=== PATIENT | male | born 1945 | race African-American/Black ===

== ENCOUNTER 2018-09-26 09:22 | Inpatient (IN) | payer MEDICARE ==
[2018-09-26] MEDS ORDERED: ISOVUE-370 76%-LOCM 1 ML ONE (10:08)
[2018-09-26 10:21] LABS: #Lymphocytes 1.4 thou/uL (1.20-3.40); #Monocytes 0.9 thou/uL (0.11-0.59); #Neutrophils 9.4 thou/uL (1.40-6.50); %Basophils 0.2 % (0.0-1.0); %Eosinophils 0.2 % (0.0-10.0); %Lymphocytes 11.6 % (21.0-51.0); %Monocytes 7.4 % (0.0-10.0); %Neutrophils 80.7 % (42.0-75.0); Hemoglobin 14.1 g/dL (14.0-18.0); Mean Corpuscular HGB CONC 32.5 g/dL (32.0-36.0); Mean Corpuscular Volume 89.3 fL (78.0-98.0); Mean Platelet Volume 8.4 fL (7.4-10.4); Platelet Count 251 thou/uL (130-400); RBC Distribution Width 12.8 % (11.5-14.5); Red Blood Cell (RBC) Count 4.86 mill/uL (4.70-6.10); White Blood Cell (WBC) Count 11.6 thou/uL (4.8-10.8)
[2018-09-26 10:40] LABS: ALT (SGPT) 60 U/L (8-55); AST (SGOT) 36 U/L (5-34); Albumin 4.2 g/dL (3.4-4.8); Alkaline Phosphatase 134 U/L (40-150); Anion Gap 14 mmol/L (10-20); BUN (Urea Nitrogen) 12 mg/dL (8.4-25.7); Bilirubin, Total 1.8 mg/dL (0.2-1.2); Calc. Creatinine Clearance 0 mL/min (70-130); Carbon Dioxide 27 mmol/L (23-31); Chloride 100 mmol/L (98-107); Estimated GFR-MDRD 83; Globulin 3.6 g/dL (2.4-3.5); Glucose 103 mg/dL (83-110); Potassium 4.1 mmol/L (3.5-5.1); Protein, Total 7.8 g/dL (5.8-8.1); Sodium 137 mmol/L (136-145)
[2018-09-26] MEDS ORDERED: Piperacillin/Tazobactam 3.375 GM VIAL ONE ×2 (11:07→17:38)
[2018-09-26] MEDS ORDERED: Adacel (T-DAP) 0.5 ML SYRINGE ONE (11:08)
--- NOTE | 2018-09-26 11:20 | PDOC.FPRHP ---
- History of Present Illness Chief Complaint: facial pain and swelling History of Present Illness: Pt is a 73yo M with PMH of traumatic fall in 2005 where he suffered orbital fx s /p surgical repair, and recurrent facial cellulitis (3x over last 6 months) presents with 5 day hx of facial swelling, erythema, and pain. Has been seen by dentist for this in the past with good treatment with resolution with Abx, however when he saw him on Saturday and was given PCN, it has not improved, in fact has worsened. He was recommended to come to the ED for evaluation. Pt reports subjective fevers at home, but otherwise ROS is negative as noted below. ED Course: Pt was given Vancomycin 1g, Zosyn 3.375g, and 1L NS. He was also given Tdap vaccine. Imaging has been ordered but not yet performed. - Allergies/Adverse Reactions Allergies Allergy/AdvReac Type Severity Reaction Status Date / Time No Known Allergies Allergy Verified 09/26/18 23:31 - Home Medications Medication Instructions Recorded Confirmed Type Acetaminophen With Codeine 1 tablet PO Q6HR PRN 09/26/18 09/26/18 History [Tylenol with Codeine #3] Amoxicillin/Potassium Clav 500 mg PO Q12HR #20 tab 09/28/18 Rx [Augmentin] Chlorhexidine Gluconate 15 ml SSP BID #300 ml 09/28/18 Rx - History PMHx:none PSHx: orbital fx and trimalar fx surgical repair (2005) FHx: none Social: Reports 15y hx of dipping tobacco, quit drinking 6years ago, no hx of illegal drug use. Lives with dtr. Independent of ADLs. Last tetanus >10 years ago. No PCP - Review of Systems General: reports: fever/chills, night sweats. denies: weight/appetite/sleep changes Eyes: reports: vision changes (no blurred vision, just d/t eye being swollen shut). denies: eye pain ENT: denies: nasal congestion, rhinorrhea Respiratory: denies: cough, congestion, shortness of breath, exercise intolerance Cardiovascular: denies: chest pain, palpitation, edema Gastrointestinal: denies: nausea, vomiting, diarrhea, constipation, abdominal pain, GI bleeding Genitourinary: reports: other (wakes 3-4x/night per). denies: incontinence, dysuria Skin: denies: rashes, lesions Musculoskeletal: denies: pain, tenderness, stiffness, swelling Neurological: denies: numbness, syncope, seizure, weakness Psychological: denies: anxiety, depression - Vital signs BP: 159/90 HR: 92 RR: 18 Tmax: 98.0 Pox: 99% on RA Wt: 86kg - Physical Exam Constitutional: NAD, awake, alert and oriented, well developed HEENT: PERRLA, EOMI, grossly normal vision, TM's clear and intact, grossly normal hearing, normal nasal mucosa, MMM -HEENT: Poor dentition, no tenderness on plapation of palate, does have tenderness and some fluctuance of L buccal mucosa. No open wounds noted. Grossly deformation of face d/t swelling of L face that extends from upper orbital region down to the lower jaw with induration and mild fluctuance of L cheek. Eye swollen shut with erythema of the swollen area. Neck: supple, trachea midline, no LAD Heart: RRR, normal S1/S2, no murmurs/rubs/gallops, pulses present, no edema Lungs: CTAB, no respiratory distress, good air movement, no rales/rhonchi, no wheezing, no retractions Abdomen: soft, non-tender, bowel sounds present, no masses/distention, no hernias Musculoskeletal: normal structure, normal tone, ROM grossly normal Neurological: no focal deficit, normal sensation Skin: no rash/lesions, capillary refill <2 seconds Heme/Lymphatic: no unusual bruising or bleeding, no purpura, no petechia Psychiatric: normal mood and affect, good judgment and insight, intact recent and remote memory FMR H&P: Results - Labs Result Diagrams: 09/28/18 10:05 09/28/18 10:05 Lab results: WBC 11.6 thou/uL (4.8-10.8) H 09/26/18 10:06 Hgb 14.1 g/dL (14.0-18.0) 09/26/18 10:06 Hct 43.4 % (42.0-52.0) 09/26/18 10:06 MCV 89.3 fL (78.0-98.0) 09/26/18 10:06 Plt Count 251 thou/uL (130-400) 09/26/18 10:06 Neutrophils % 80.7 % (42.0-75.0) H 09/26/18 10:06 Sodium 137 mmol/L (136-145) 09/26/18 10:06 Potassium 4.1 mmol/L (3.5-5.1) 09/26/18 10:06 Chloride 100 mmol/L (98-107) 09/26/18 10:06 Carbon Dioxide 27 mmol/L (23-31) 09/26/18 10:06 BUN 12 mg/dL (8.4-25.7) 09/26/18 10:06 Creatinine 1.06 mg/dL (0.7-1.3) 09/26/18 10:06 Glucose 103 mg/dL (83-110) 09/26/18 10:06 Calcium 10.0 mg/dL (7.8-10.44) 09/26/18 10:06 Total Bilirubin 1.8 mg/dL (0.2-1.2) H 09/26/18 10:06 AST 36 U/L (5-34) H 09/26/18 10:06 ALT 60 U/L (8-55) H 09/26/18 10:06 Alkaline Phosphatase 134 U/L (40-150) 09/26/18 10:06 Serum Total Protein 7.8 g/dL (5.8-8.1) 09/26/18 10:06 Albumin 4.2 g/dL (3.4-4.8) 09/26/18 10:06 FMR H&P: A/P - Problem List (1) Facial cellulitis Status: Acute Code(s): L03.211 - CELLULITIS OF FACE (2) Facial abscess Status: Acute Code(s): L02.01 - CUTANEOUS ABSCESS OF FACE (3) Hx of reduction of orbital fracture Status: Acute Code(s): Z87.81 - PERSONAL HISTORY OF (HEALED) TRAUMATIC FRACTURE; Z98.890 - OTHER SPECIFIED POSTPROCEDURAL STATES (4) Elevated liver enzymes Status: Acute Code(s): R74.8 - ABNORMAL LEVELS OF OTHER SERUM ENZYMES (5) Tobacco use Status: Acute Code(s): Z72.0 - TOBACCO USE - Plan Recurrent Facial Cellulitis with Abscess (failed outpt tx) Pt with 3 episodes of cellulitis over last 6 months treated with oral abx, did not respond on this occasion. Has been on PCN since Saturday and worsening swelling, pain and erythema. - WBC 11, VSS. No signs of sepsis at this time. - s/p Vanc and Zosyn in ED, will continue - blood cx pending - with hx of orbital fx and hardware (Plates x4) will consult OMFS, Dr. Hyde for surgical I&D - CTface pending for further evaluation - ESR and CRP to evaluate for osteo - NPO, s/p 1L NS, will place on maintenance at NS @ 120ml/hr Hx of oribital fx with hardware in place As above, this complicates picture of cellulitis, concern for possible hardware infection - OMFS consult Elevated Liver Enzymes No hx of abd pain or alcoholism. - Hep panel and RUQ US pending - trend CMP Tobacco Use Dips [place] x15 years - encourage cessation DVT PPx: SCD Code Status: Full Diet: NPO Fluids: NS @120 Dispo: Admit to medical. Will likely stay >2 midnights. FMR H&P: Upper Level - Plan Date/Time: 09/26/18 1117 I, [], have evaluated this patient and agree with findings/plan as outlined by chemist internship resident. Pertinent changes/additions are listed here. Addendum - Attending - Attending Attestation Date/Time: 10/02/18 1614 I personally evaluated the patient and discussed the management with Dr. Hernandez on 09/26/18. I agree with the History, Examination, Assessment and Plan documented above with any addition or exceptions noted below. 73 y.o. BM with remote h/o Left traumatic malar and orbital blowout fx now with recurrent facial cellulitis/gingivitis previously responsive to oral abx from dentist, now not and with abscess formation with maxillary involvement. OMFS to surgically drain and eval for repair. Incidentally elevated LFT's with abnormal GB findings on US to be evaluated when stable from acute issue.
[2018-09-26] MEDS ORDERED: Dexamethasone 20 MG/5 ML VIAL ONE (11:37)
[2018-09-26] MEDS ORDERED: Glycopyrrolate 0.2 MG/ML 5 ML SYRINGE ONE (11:37)
[2018-09-26] MEDS ORDERED: PROPOFOL 200 MG/20 ML VIAL ONE (11:37)
[2018-09-26] MEDS ORDERED: PHENYLEPHRINE-NS 100 MCG/ML 10 ML SYRINGE ONE (11:37)
[2018-09-26] MEDS ORDERED: Lidocaine 1% PF 5 ML VIAL ONE (11:37)
[2018-09-26] MEDS ORDERED: Ondansetron PF 4 MG/2 ML Vial ONE (11:37)
[2018-09-26] MEDS ORDERED: Rocuronium Bromide 10 MG/ML (10ML VIAL) ONE (11:37)
[2018-09-26] MEDS ORDERED: Lidocaine 1% w/Epinephrine 1:100K 20 ML VIAL ONE ×2 (11:43→16:34)
[2018-09-26] MEDS ORDERED: Morphine 4 MG/ML VIAL ONE (12:01)
--- NOTE | 2018-09-26 13:04 | CT ---
CT OF THE FACE WITH CONTRAST: DATE: 09/26/2018. COMPARISON: None. HISTORY: Dental pain, left-sided facial swelling. TECHNIQUE: Axial CT imaging at 2.5 mm intervals through the face with Iv contrast. Coronal and sagittal reforma tted imaging obtained. FINDINGS: There is mild mucosal thickening involving the medial aspect of the left frontal sinus. There is sca ttered partial opacification of the left ethmoid air cells. The right maxillary sinus, sphenoid sinu ses, and mastoid air cells are unremarkable. There is complete opacification of the left maxillary s inus. The internal contents of the opacified maxillary sinus on the left are heterogeneous, hypodens e posteriorly with hyperdensity anteriorly, possibly on the basis of enhancing soft tissue. This ext ends to the level of a focal area of osseous dehiscence which involves the anterior wall of the left maxillary sinus measuring 1.2 cm in transverse dimension. There is also a large area of dehiscence o f the orbital floor on the left lateral to the foramen for the infraorbital nerve measuring 1.9 cm in transverse dimension. Abnormal soft tissue density extends to the inferior aspect of the orbit in t his region. There is stranding and increased density within the retroantral fat on the left. There is mild stranding of the fat within the train system operator space on the left as well. There is extensive skin thickening and subcutaneous fat stranding in the submandibular region, left g reater than right. There is extensive abnormal soft tissue swelling with skin thickening and subcuta neous fat stranding superior and lateral to the left orbit, anterior to and lateral to the left orbit and inferior to the left orbit extending into the perimaxillary and perimandibular region on the lef t. There is a complex multilobulated soft tissue mass composed of islands of hypodensity suggesting fluid and/or necrotic components. The epicenter of this process is anterior to the maxillary sinus a nd anterior/lateral to the ventral aspect of the zygomatic arch on the left. This extends to involve the subcutaneous fat and measures at least 5.7 cm in greatest transverse dimension, 4.[address] AP dimension, and approximately 6 cm in greatest craniocaudal dimension. There are areas of osseous dehiscence involving the inferior aspect of the maxillary sinus on the lef t anteriorly and laterally. There is postoperative hardware associated with the anterior wall and in ferior aspect of the left maxillary sinus. There are a few scattered mildly enlarged level I lymph nodes bilaterally. The imaged intracranial contents appear grossly unremarkable. There is atherosclerotic calcification of the distal vertebral arteries and cavernous carotid arterie s. IMPRESSION: There is extensive left-sided facial soft tissue swelling with skin thickening and subcutaneous fat s tranding from the axial level superior to the left orbit to the level of the mandible suggesting exte nsive cellulitis. There is a complex multiloculated lesion within the soft tissues adjacent to the m axillary sinus on the left which suggests a complex multiloculated soft tissue abscess. There is abn ormal soft tissue density in the maxillary sinus on th left with areas of dehiscence involving the or bital floor, anterior maxillary sinus wall, and posterior maxillary sinus wall. All findings may be on the basis of an infectious process within the maxillary sinus extending into the soft tissues. Ho wever, the marked complexity of this process, including the suggestion of soft tissue density in the maxillary sinus itself raises the question of possible underlying malignancy. There is involvement o f the train system operator space and the retroantral fat on the left. Results were called to Dr. Sands at 11:45 a.m. 09/26/2018. CODE CR POS: SJ
[2018-09-26] MEDS ORDERED: Acetaminophen 325 MG TAB PO PRN (14:05)
[2018-09-26] MEDS ORDERED: Ketorolac Tromethamine 10 MG TAB PO PRN (14:05)
[2018-09-26] MEDS ORDERED: Ondansetron ODT 4 MG TAB PO PRN (14:05)
--- NOTE | 2018-09-26 14:13 | ULT ---
RIGHT UPPER QUADRANT ULTRASOUND: INDICATION: Elevated liver enzymes. COMPARISON: No prior imaging comparison. FINDINGS: No focal hepatic mass is evident. There is increased echogenicity of the gallbladder lumen with asso ciated moderate gallbladder distention. Doppler evaluation does not reveal flow within the intralumi nal echogenicity of the gallbladder which, therefore, relate to tumefactive sludge and/or a mass-like configuration of gallstones. There is mild gallbladder wall thickening at approximately 4 mm. The visualized common duct is 4 mm, within normal limits. No ascites is seen. IMPRESSION: Moderate distention of the gallbladder with increased intraluminal echogenicity as discussed above wh ich could relate to tumefactive sludge and/or layering cholelithiasis. There is mild gallbladder wal l thickening. The possibility of an underlying gallbladder mass is not excluded on the basis of this exam as the finding is immobile during real-time assessment. Therefore, recommend surgical consulta tion for further assessment. POS: TPC
[2018-09-26 15:01] LABS: HBCM Index 0.06 S/CO (0-0.79); HBSAB Concentration 1.68 mIU/mL; HBSAg Index 0.24 S/CO (0-0.99); Hep B Core Total Ab Non-Reactive (NonReactive); Hep B Core Total Index 0.09 S/CO (0-0.79); Hep B Surf AB Non-Reactive (NonReactive); Hep B Surf Ag Non-Reactive S/CO (NonReactive); Hep C IgG Ab Non-Reactive (NonReactive); Hep C Index 0.06 S/CO (0-0.79); Hepatitis B Core IgM Abs Non-Reactive (NonReactive)
[2018-09-26] MEDS ORDERED: Hydrocortisone 1% Cream 30 GM TUBE ONE (16:34)
[2018-09-26] MEDS ORDERED: Chlorhexidine Gluconate 15 ML UDCUP SSP ONE (16:34)
[2018-09-26] MEDS ORDERED: Fentanyl 100 MCG/2 ML VIAL ONE (17:02)
[2018-09-26] MEDS ORDERED: Ophthalmic Irrigation Solution 15 ML ONE (18:30)
[2018-09-26] MEDS ORDERED: Promethazine HCl 25 MG/ML VIAL IM/IV PRN (19:39)
[2018-09-26] MEDS ORDERED: Ondansetron HCl/PF 4 MG/2 ML Vial IVP PRN (19:39)
[2018-09-26] MEDS: Piperacillin/Tazobactam 3.375 GM in Sodium Chloride 0.9% 100 ML IVPB SCH (20:08)
[2018-09-26] MEDS: Sodium Chloride 0.9% 1,000 ML IV SCH ×2 (20:08→22:39)
[2018-09-26 20:13] VITALS: BMI 25.2
[2018-09-26] MEDS: Chlorhexidine Gluconate 15 ML UDCUP SSP SCH (22:39)
[2018-09-26] MEDS: Vancomycin HCl 1 GM in Premix Bag 1 BAG IVPB SCH (22:40)
[2018-09-27] MEDS: Piperacillin/Tazobactam 3.375 GM in Sodium Chloride 0.9% 100 ML IVPB SCH ×5 (01:12→23:15)
--- NOTE | 2018-09-27 01:19 | CON ---
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 Oral surgery was consulted for surgical intervention. PAST MEDICAL HISTORY: None. PAST SURGICAL HISTORY: Left [facility]MC left orbital fracture repair in 2005. HOME MEDICATIONS: 1. Penicillin. 2. Tylenol 3. ALLERGIES: NONE. SOCIAL HISTORY: Positive for chewing tobacco, negative for alcohol or illicit drug use. REVIEW OF SYMPTOMS: The patient reports left facial pain, soreness when opening mouth. No vision changes or blurry vision around the left side. PHYSICAL EXAMINATION: VITAL SIGNS: Stable, afebrile. LABORATORY RESULTS: White blood cell count 11.6, hemoglobin 14.1, hematocrit 43.4, platelet count 89.3. PHYSICAL EXAMINATION: GENERAL: Awake, alert and oriented x3. No acute distress. HEENT: There is generalized left facial swelling over the left malar eminence extending periorbitally with associated lid edema. With assistance the patient is able to open this eye with extraocular movements intact. Visual acuity is grossly intact as well. There is superficial fluctuance along the left malar eminence. Tympanic membranes clear and intact. Intraoral exam reveals left buccal and maxillary vestibular edema. There is exposure of the inferior aspect of the left maxillary buttress plate through the alveolar gingiva on the patient's left posterior quadrant. No purulence is expressed on palpation. Partially edentulous maxilla and mandible. Tongue full range of motion with floor of mouth soft. No palatal droop. IMAGING: CT of the face reveals extensive left-sided facial swelling with multiple loculations consistent with abscess. There are 3 plates consisting with the previous ZMC repair. One extending on the left maxillary buttress with 4 associated screws. Two of these screws appear not to be within bone. The left maxillary sinus is obliterated with fluid. The orbital rim and frontal process plates appear intact. 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 PLAN: The patient will be taken to the operating room for removal of the infected hardware and incision and drainage of abscess. He will be admitted to family medicine for supportive care. The risks, benefits and alternatives were discussed with the patient and patient's family who agree with the surgical plan. Job ID: [id number]
--- NOTE | 2018-09-27 01:46 | OP ---
DATE OF PROCEDURE: 09/26/2018 PREOPERATIVE DIAGNOSES: 1. Failing left maxillary hardware. 2. Left facial abscess. POSTOPERATIVE DIAGNOSES: 1. Failing left maxillary hardware. 2. Left facial abscess. PROCEDURES PERFORMED: 1. Removal of failing left maxillary hardware. 2. Incision and drainage of left facial abscess. ANESTHESIA: General endotracheal anesthesia. INDICATIONS FOR PROCEDURE: This is a 73-year-old male with approximately 6-month history of recurrent left facial cellulitis with failed outpatient oral antibiotic therapy over the last week with significant worsening of facial swelling, made the patient to report to the emergency room, where a CT of the face revealed failing left maxillary hardware with associated left facial abscess, requiring surgical intervention. DESCRIPTION OF PROCEDURE: The patient was admitted on preoperative holding area. The risks, benefits, and alternatives of the procedure were discussed with the patient and the patient's family. Questions were sought and answered, and an informed consent was obtained. The patient was transferred to the OR by Anesthesia Nursing into the OR table, where a safety belt was secured, standard ASA monitor attached, and the patient was noted to have stable vital signs. IV induction by Anesthesia with oral endotracheal intubation x1 without complication. Endotracheal tube was secured in a standard head-wrap fashion, and the patient was prepped and draped in a sterile fashion and a time-out was performed. I began the procedure by suctioning the oropharynx, and a moistened Raytec throat pack was placed. Approximately, 5 mL of 1% lidocaine with 1:100,000 epinephrine was administered as a local infiltration throughout the left maxillary vestibule. A Bovie cautery was used for approximately 4 cm horizontal incision above the mucogingival junction with blunt subperiosteal dissection to expose the plate along the left maxillary buttress. Two screws were found to be loose, not integrated with the bone. Total of four screws and one plate were removed. Spontaneous purulence was coming from within the left facial soft tissues. A Hemostat was used with blunt dissection following the infectious tract. This freely extended without dissection all the way to the skin with associated spontaneous facial drainage in a superior and second inferior position of the malar eminence. Copious purulence was expressed from the wounds and irrigated with normal saline. The left maxillary sinus was accessible as well to the old fracture pattern and was suctioned and irrigated with saline as well. Then, two 0.25-inch Wellington drains were placed through the intraoral incision, one extending superiorly and one inferiorly, associated with the spontaneous extraoral drainage through the skin, and a running 4-0 chromic was used for wound closure. The oropharynx was thoroughly suctioned, the moistened Raytec throat pack was removed, and the patient was extubated in the room and returned to the PACU in stable condition. FLUIDS: See Anesthesia records. BLOOD LOSS: 50 mL. DRAINS: Two 0.25-inch Wellington drains in the left facial soft tissues. HARDWARE: One plate and four screws removed. NEEDLE COUNT: Verified as correct. COMPLICATIONS: None. Job ID: [id number]
[2018-09-27 06:30] LABS: #Lymphocytes 1.5 thou/uL (1.20-3.40); #Monocytes 0.7 thou/uL (0.11-0.59); #Neutrophils 8.7 thou/uL (1.40-6.50); %Basophils 0.3 % (0.0-1.0); %Eosinophils 0.2 % (0.0-10.0); %Lymphocytes 13.5 % (21.0-51.0); %Neutrophils 80.1 % (42.0-75.0); Hemoglobin 12.3 g/dL (14.0-18.0); Mean Corpuscular HGB CONC 32.8 g/dL (32.0-36.0); Mean Corpuscular Hemoglobin 29.6 pg (27.0-31.0); Mean Corpuscular Volume 90.3 fL (78.0-98.0); Mean Platelet Volume 8.2 fL (7.4-10.4); Platelet Count 253 thou/uL (130-400); RBC Distribution Width 12.9 % (11.5-14.5); Red Blood Cell (RBC) Count 4.16 mill/uL (4.70-6.10); White Blood Cell (WBC) Count 10.9 thou/uL (4.8-10.8)
[2018-09-27] MEDS: Sodium Chloride 0.9% 1,000 ML IV SCH ×2 (06:37→11:37)
--- NOTE | 2018-09-27 06:37 | PDOC.FM ---
Addendum entered and electronically signed by Beth Hernandez DO 09/27/18 11:41: Pt approached during team rounds and discussed he would not like further workup of his gallbladder finding. We will follow his wishes and refrain from contacting General surgery. Original Note: - Subjective Subjective: Pt reports improved pain from yesterday after surgical I&D. He denies fever, chills, RIOS, CP. NAEO - Objective MAR Reviewed: Yes Vital Signs & Weight: Vital Signs (12 hours) Temp Pulse Resp BP Pulse Ox 09/27/18 04:42 105/57 L 09/27/18 04:08 98.5 F 65 16 96/59 L 100 09/27/18 00:00 98.6 F 09/26/18 20:00 99 09/26/18 19:35 97.6 F 81 18 148/87 H 99 Weight Weight 89.176 kg Result Diagrams: 09/27/18 06:10 09/27/18 06:10 Phys Exam - Physical Examination Constitutional: NAD HEENT: moist MMs packing in place in L cheek, pinrose drains not visible on my exam less swelling than previous,still with swelling from lid to L lower jaw Respiratory: no wheezing, no rales, clear to auscultation bilateral Cardiovascular: RRR, no significant murmur Gastrointestinal: soft, non-tender, no distention, positive bowel sounds Musculoskeletal: no edema, pulses present Neurological: moves all 4 limbs Psychiatric: A&O x 3 Dx/Plan (1) Facial cellulitis Code(s): L03.211 - CELLULITIS OF FACE Status: Acute (2) Facial abscess Code(s): L02.01 - CUTANEOUS ABSCESS OF FACE Status: Acute (3) Hx of reduction of orbital fracture Code(s): Z87.81 - PERSONAL HISTORY OF (HEALED) TRAUMATIC FRACTURE; Z98.890 - OTHER SPECIFIED POSTPROCEDURAL STATES Status: Acute (4) Elevated liver enzymes Code(s): R74.8 - ABNORMAL LEVELS OF OTHER SERUM ENZYMES Status: Acute (5) Tobacco use Code(s): Z72.0 - TOBACCO USE Status: Acute - Plan Plan: Recurrent Facial Cellulitis with Abscess (failed outpt tx), s/p surgical I&D and hardware removal Pt with 3 episodes of cellulitis over last 6 months treated with oral abx, did not respond on this occasion. Has been on PCN since Saturday and worsening swelling, pain and erythema. - CTface showed extensive abscess formation and failing hardware - WBC 11, VSS. No signs of sepsis at this time. - IV Vancomycin and Zosyn - blood cx NGTD - with hx of orbital fx and hardware (Plates x4) consulted OMFS, Dr. Hyde - s/p surgical I&D and hardware removal 09/26 - ESR and CRP elevated, continue to monitor and consider ID consult for recs for further Abx course, does not appear wound cx collected during surgery - continue IVF until able to tolerate PO Hx of oribital fx with hardware in place Appeared infected, s/p hardware removal - OMFS on board, appreciate recs Elevated Liver Enzymes No hx of abd pain or alcoholism. - Hep panel wnl - RUQ US with concern for possible underlying malignancy vs. tumefactive biliary sludge vs a mass configuration of stones, unable to be distinguished - plan to discuss with general surgery for eval of need for surgical evaluation. - trend [facility] - encourage cessation DVT PPx: SCD Code Status: Full Diet: NPO Fluids: NS @120 Dispo: Pending ID recs and GI recs Addendum - Attending - Attending Attestation Date/Time: 09/27/182146 I personally evaluated the patient at 0950 am and discussed the management with Dr. Hernandez I agree with the History, Examination, Assessment and Plan documented above with any addition or exceptions noted below. Facial cellulitis/abscess and infected hardware- s/p i&d and removal of hardware. Appreciate OMFS recs. Continue IV abx Gallbladder sludge vs mass- discussed contacting general surgery for evaluation. However patient declines further workup saying that he has no abdominal pain and does not want another surgery. May consider o/p referral.
[2018-09-27 06:55] LABS: ALT (SGPT) 45 U/L (8-55); AST (SGOT) 24 U/L (5-34); Albumin 3.5 g/dL (3.4-4.8); Alkaline Phosphatase 118 U/L (40-150); Anion Gap 12 mmol/L (10-20); BUN (Urea Nitrogen) 9 mg/dL (8.4-25.7); Bilirubin, Total 1.5 mg/dL (0.2-1.2); Calc. Creatinine Clearance 88 mL/min (70-130); Calcium 9.1 mg/dL (7.8-10.44); Carbon Dioxide 25 mmol/L (23-31); Chloride 102 mmol/L (98-107); Estimated GFR-MDRD Greater than 90; Globulin 3.1 g/dL (2.4-3.5); Glucose 110 mg/dL (83-110); Potassium 4.1 mmol/L (3.5-5.1); Protein, Total 6.6 g/dL (5.8-8.1); Sodium 135 mmol/L (136-145)
[2018-09-27] MEDS: Vancomycin HCl 1 GM in Premix Bag 1 BAG IVPB SCH ×2 (11:37→23:15)
[2018-09-27] MEDS ORDERED: Recombivax (HEP-B) 5 MCG/0.5 ML VIAL IM ONE (11:43)
[2018-09-27] MEDS: Chlorhexidine Gluconate 15 ML UDCUP SSP SCH ×2 (13:15→21:42)
[2018-09-27] MEDS ORDERED: Polyethylene Glycol OPTH DROP 15 ML BOT EA EYE PRN (20:06)
--- NOTE | 2018-09-27 20:08 | TCOM ---
DATE OF STUDY: 09/27/2018 SUBJECTIVE: The patient sitting at bedside, multiple family members in the room. The patient reports he is doing very well since surgery, minimal pain, swelling improved, able to see out of his left eye with no gross visual changes, reports drainage from extraoral fistula last night, but discontinued when he woke up this morning and does not report any worsening symptoms. OBJECTIVE: VITAL SIGNS: Stable, afebrile. GENERAL: Noticeable improvement in periorbital and left facial edema, mildly tender to palpation, no erythema. Maximum interincisal opening within normal limits. Jeramie drain is intact and advanced 2 cm. No noticeable purulent drainage from intraoral wound spontaneously or upon palpation. ASSESSMENT AND PLAN: This is a 73-year-old male, postoperative day #1 status post removal of maxillary hardware and incision and drainage of left facial abscess. The patient showing noticeable improvement today after surgery, subjectively feels significantly better as well. Continue IV antibiotics. We will likely discontinue Jeramie drains tomorrow. Continue normal diet as tolerated. Job ID: [id number] [facility]
[2018-09-28] MEDS: Sodium Chloride 0.9% 1,000 ML IV SCH (04:10)
[2018-09-28] MEDS: Piperacillin/Tazobactam 3.375 GM in Sodium Chloride 0.9% 100 ML IVPB SCH (05:42)
--- NOTE | 2018-09-28 06:54 | PDOC.FM ---
- Subjective Subjective: NAEO. Pt reports feeling much better, in fact would like to go home. His pain is well controlled and reports drainage from alexis drain is minimal from what he can tell. He was only able to eat small amounts yesterday. He walked with PT and is independent of ADLs at this point. He denies dysuria, n/v/c/d, fever/ chills, vision changes, and pain. - Objective MAR Reviewed: Yes Vital Signs & Weight: Vital Signs (12 hours) Temp Pulse Resp BP Pulse Ox 09/27/18 19:39 97.5 F L 61 18 119/74 96 Weight Weight 89.176 kg I&O: 09/26/18 09/27/18 09/28/18 06:59 06:59 06:59 Intake Total 1420 Output Total 375 Balance 1045 Result Diagrams: 09/28/18 10:05 09/28/18 10:05 Phys Exam - Physical Examination Constitutional: NAD HEENT: moist MMs L alexis drain in place with no obvious drainage face significantly decreased in swelling Respiratory: no wheezing, no rales, clear to auscultation bilateral Cardiovascular: RRR, no significant murmur Gastrointestinal: soft, non-tender, no distention, positive bowel sounds Musculoskeletal: no edema Neurological: normal sensation, moves all 4 limbs Psychiatric: normal affect, A&O x 3 Dx/Plan (1) Facial abscess Code(s): L02.01 - CUTANEOUS ABSCESS OF FACE Status: Acute (2) Facial cellulitis Code(s): L03.211 - CELLULITIS OF FACE Status: Acute (3) Hx of reduction of orbital fracture Code(s): Z87.81 - PERSONAL HISTORY OF (HEALED) TRAUMATIC FRACTURE; Z98.890 - OTHER SPECIFIED POSTPROCEDURAL STATES Status: Acute (4) Elevated liver enzymes Code(s): R74.8 - ABNORMAL LEVELS OF OTHER SERUM ENZYMES Status: Acute (5) Tobacco use Code(s): Z72.0 - TOBACCO USE Status: Acute - Plan Plan: Recurrent Facial Cellulitis with Abscess (failed outpt tx), s/p surgical I&D and hardware removal Pt with 3 episodes of cellulitis over last 6 months treated with oral abx, did not respond on this occasion. Has been on PCN since Saturday and worsening swelling, pain and erythema. - CTface showed extensive abscess formation and failing hardware - WBC downtrending, VSS. No signs of sepsis at this time. - Continue IV Vancomycin and Zosyn - blood cx NGTD, wound cx not collected - s/p surgical I&D and hardware removal 09/[address] Hyde - ESR and CRP elevated, no mention of osteo on CT - dc IVF today, encourage PO hydration and regular diet as tolerated Hx of oribital fx with hardware in place (2005) Appeared infected, s/p hardware removal - OMFS on board, appreciate recs Elevated Liver Enzymes No hx of abd pain or alcoholism. - Hep panel wnl - RUQ US with concern for possible underlying malignancy vs. tumefactive biliary sludge vs a mass configuration of stones, unable to be distinguished - Pt yesterday reported no desire to have further workup, however after speaking with his dtr would like evaluation. Plan to discuss with general surgery for eval of need for surgical evaluation outpatient. - trend CMP Tobacco Use Dips [place] x15 years - encourage cessation DVT PPx: SCD Code Status: Full Diet: Reg Fluids: SL Dispo: Pending OMFS Abx recs and Gen Surg recs. Addendum - Attending - Attending Attestation Date/Time: 09/28/18 2420 I personally evaluated the patient at 0935 am and discussed the management with Dr. Hernandez I agree with the History, Examination, Assessment and Plan documented above with any addition or exceptions noted below. Stable for d/c if cleared by OMFS f/u with gen surg outpatient for eval of gallbladder
[2018-09-28] MEDS: Chlorhexidine Gluconate 15 ML UDCUP SSP SCH (08:49)
[2018-09-28] MEDS: Vancomycin HCl 1 GM in Premix Bag 1 BAG IVPB SCH (11:03)
[2018-09-28 11:04] LABS: #Eosinphils 0.1 thou/uL (0.0-0.7); #Lymphocytes 1.7 thou/uL (1.20-3.40); #Monocytes 0.5 thou/uL (0.11-0.59); #Neutrophils 4.4 thou/uL (1.40-6.50); %Basophils 0.3 % (0.0-1.0); %Eosinophils 1.6 % (0.0-10.0); %Lymphocytes 24.7 % (21.0-51.0); %Monocytes 7.9 % (0.0-10.0); %Neutrophils 65.4 % (42.0-75.0); Hemoglobin 12.4 g/dL (14.0-18.0); Mean Corpuscular HGB CONC 33.3 g/dL (32.0-36.0); Mean Corpuscular Volume 90.1 fL (78.0-98.0); Mean Platelet Volume 8.3 fL (7.4-10.4); Platelet Count 284 thou/uL (130-400); RBC Distribution Width 12.9 % (11.5-14.5); Red Blood Cell (RBC) Count 4.14 mill/uL (4.70-6.10); White Blood Cell (WBC) Count 6.7 thou/uL (4.8-10.8)
[2018-09-28 11:22] LABS: ALT (SGPT) 43 U/L (8-55); AST (SGOT) 28 U/L (5-34); Albumin 3.7 g/dL (3.4-4.8); Alkaline Phosphatase 107 U/L (40-150); Anion Gap 11 mmol/L (10-20); BUN (Urea Nitrogen) 9 mg/dL (8.4-25.7); Bilirubin, Total 1.2 mg/dL (0.2-1.2); Calc. Creatinine Clearance 77 mL/min (70-130); Calcium 9.2 mg/dL (7.8-10.44); Carbon Dioxide 24 mmol/L (23-31); Chloride 107 mmol/L (98-107); Estimated GFR-MDRD 80; Globulin 3.1 g/dL (2.4-3.5); Glucose 92 mg/dL (83-110); Protein, Total 6.8 g/dL (5.8-8.1); Sodium 138 mmol/L (136-145)
[2018-09-28 11:37] LABS: Vancomycin, Trough 12.3 ug/mL
[2018-09-28 11:58] VITALS: BP 139/77; TEMP 98.2
[2018-09-28] MEDS ORDERED: Amoxicillin/Potassium Clav 500 MG TAB PO SCH (21:00)
--- NOTE | 2018-09-29 00:22 | TCOM ---
DATE OF STUDY: 09/28/2018 SUBJECTIVE: The patient lying in bed comfortably, no acute distress. Reports tolerating normal diet, minimal pain. One of his [place] drains came out earlier today. Reports no purulent drainage. Improvement in his facial edema. OBJECTIVE: VITAL SIGNS: Stable. Afebrile. HEENT: Significant improvement in left periorbital and facial edema. No extraoral drainage appreciated. Maximum interincisal opening improving intraorally. One [place] drain intact, removed. No purulent secretions from the wound. Soft tissue is pink and healthy with improving edema within the vestibule. No signs of acute issues. LABORATORY DATA: White blood cell count 6.7. ASSESSMENT AND PLAN: This is a 73-year-old male, postoperative day #2, status post maxillary hardware removal and incision and drainage of facial abscess showing significant clinical improvement. The patient can be discharged from an oral surgical standpoint. Recommend Augmentin 875 b.i.d. x1 week. Peridex mouth rinse 10 mL swish and spit t.i.d. x1 week. The patient is to followup in [facility] Surgery [facility] in 4-5 days. He can call us at [phone] for an appointment or with questions or concerns of worsening symptoms. Postoperative instructions and oral hygiene instructions were given to the patient in detail. Job ID: [id number]
== END 2018-09-28 13:50 | disposition home or self-care (01) | DRG 603 ==
LOC: ERS 09:22 → ERHOLD 10:25 → SURG A 15:49 → T4-A 20:06
PROVIDERS: ADMIT Family Medicine; ATTEND Family Medicine
PROC: 2Y5 Placement, Anatomical Orifices, Removal (ICD-10-PCS; principal; 2018-09-26)
PROC: 0H91XZZ Drainage of Face Skin, External Approach (ICD-10-PCS; 2018-09-26)
DX: L02.01 Cutaneous abscess of face (principal); R74.8 Abnormal levels of other serum enzymes; Z72.0 Tobacco use; M27.69 Other endosseous dental implant failure
CPT/HCPCS: 36415; 70487; 76705; 80053; 80202; 85025; 85652; 86140; 86704; 86705; 86706; 86803; 87040; 87340; 90471; 90715; 90746; 96365; 96366; 96367; 96375; 99406; J1100; J2001; J2270; J2405; J2543; J2704; J3010; J3370; J7050; Q9966

== ENCOUNTER 2025-03-27 19:33 | Emergency (ER) | payer MEDICARE ==
[2025-03-27 20:18] LABS: #Basophils 0.05 10x3/uL (0.0-0.2); #Eosinophils 0.06 10x3/uL (0.0-0.7); #Monocytes 0.54 10x3/uL (0.11-0.59); #Neutrophils 3.47 10x3/uL (1.40-6.50); %Basophils 0.7 % (0.0-1.0); %Eosinophils 0.9 % (0.0-10.0); %Lymphocytes 38.5 % (21.0-51.0); %Monocytes 8.0 % (0.0-10.0); %Neutrophils 51.8 % (42.0-75.0); Hematocrit 41.7 % (42.0-52.0); Hemoglobin 14.1 g/dL (14.0-18.0); Mean Corpuscular Hemoglobin 28.5 pg (27.0-31.0); Mean Corpuscular Volume 84.4 fL (78.0-98.0); Platelet Count 299 10x3/uL (130-400); Red Blood Cell (RBC) Count 4.94 mill/uL (4.70-6.10); White Blood Cell (WBC) Count 6.72 10x3/uL (4.8-10.8)
[2025-03-27 20:47] LABS: ALT (SGPT) 11 U/L (Less than 45); AST (SGOT) 18 U/L (11-34); Albumin 4.3 g/dL (3.1-4.5); Alkaline Phosphatase 79 U/L (40-110); Anion Gap 16 mmol/L (10-20); BUN (Urea Nitrogen) 8 mg/dL (8.4-25.7); Bilirubin, Total 0.9 mg/dL (0.3-1.2); Calc. Creatinine Clearance 0 mL/min (70-130); Calcium 9.4 mg/dL (7.8-10.44); Carbon Dioxide 21 mmol/L (23-31); Chloride 103 mmol/L (98-107); Globulin 3.5 g/dL (2.4-3.5); Glucose 113 mg/dL (83-110); Potassium 3.6 mmol/L (3.5-5.1); Sodium 136 mmol/L (136-145)
[2025-03-27] MEDS ORDERED: HYDROcodone/Acetaminophen 5/325 mg Tablet ONE (20:56)
[2025-03-27 21:22] LABS: Bacteria/HPF None Seen HPF (None Seen); CAUTI Indications for Culture Pelvic or flank pain; Glucose, Urine (Dipstick) Normal (Negative); Leukocyte Negative Leu/uL (Negative); Protein, Urine (Dipstick) Negative (Neg-Trace); RBC/HPF 0-3 HPF (0-3); Specific Gravity, Urine 1.003 (1.002-1.036); WBC/HPF 0-3 HPF (0-3)
[2025-03-27 21:24] LABS: Urine Culture Reflex No No
== END 2025-03-27 21:37 | disposition home or self-care (01) ==
LOC: ERS 19:33
DX: N40.1 Benign prostatic hyperplasia with lower urinary tract symptoms (principal); R33.8 Other retention of urine; F17.220 Nicotine dependence, chewing tobacco, uncomplicated
CPT/HCPCS: 36415; 51702; 51798; 80053; 81001; 85025; 87077; 87086; 87186; 99283

== ENCOUNTER 2025-04-04 08:43 | Emergency (ER) | payer MEDICARE | END 2025-04-04 09:51 | disposition home or self-care (01) | LOC: ERS 08:43 | DX: T83.091A Other mechanical complication of indwelling urethral catheter, initial encounter (principal) | CPT/HCPCS: 99283 ==